=== PATIENT | female | born 1955 | race Caucasian/White ===

== ENCOUNTER 2018-02-14 08:58 | Outpatient (CLI) | payer BC ==
--- NOTE | 2018-02-14 10:45 | ULT ---
GALLBLADDER ULTRASOUND: HISTORY: Abnormal liver function tests. COMPARISON: None. TECHNIQUE: Utilizing a Multi-Hertz transducer, sonographic imaging of the right upper quadrant was performed in the longitudinal and transverse plane. FINDINGS: The left hepatic lobe is difficult to evaluate due to bowel gas. The right hepatic lobe has a normal echotexture. No hepatic masses or intrahepatic biliary dilatation. Contour of the hepatic margin i s maintained. The right hepatic lobe is reported to be 15.8 cm. The right kidney has a normal cortical echotexture. No hydronephrosis. The right kidney measures 3. 6 x 10.6 x 4.1 cm. The gallbladder is surgically absent. A previous cholecystectomy is reported in 2002. The main port al vein is patent. Appropriate reduction of flow. Common bile duct diameter is 0.4 cm. IMPRESSION: Limited evaluation of the liver. The visualized hepatic parenchyma does not demonstrate any obvious masses. Correlate clinically. If there is concern for mass, consider liver mass protocol CT. POS: [facility]
== END 2018-02-14 08:59 | disposition home or self-care (01) ==
LOC: SCSULT 08:58
PROVIDERS: ATTEND Internal Medicine Geriatric Medicine
DX: R94.5 Abnormal results of liver function studies (principal)
CPT/HCPCS: 76705

== ENCOUNTER 2018-07-13 14:44 | Emergency (ER) | payer BC ==
--- NOTE | 2018-07-13 16:28 | RAD ---
CHEST ONE VIEW 07/13/18 HISTORY: Chest pain. COMPARISON: Chest radiograph 2017. FINDINGS: There is interposition of the bowel between the hemidiaphragm and the spleen as well as the liver. Vera ngs without focal air space consolidation, pneumothorax or effusion. No acute osseous abnormality. IMPRESSION: 1. No acute intrathoracic abnormality. 2. Chronic granulomatous disease. POS: [facility]
[2018-07-13 16:43] LABS: #Lymphocytes 2.3 thou/uL (1.20-3.40); #Monocytes 0.3 thou/uL (0.11-0.59); #Neutrophils 4.4 thou/uL (1.40-6.50); %Basophils 0.6 % (0.0-1.0); %Eosinophils 0.7 % (0.0-10.0); %Lymphocytes 32.9 % (21.0-51.0); %Monocytes 4.6 % (0.0-10.0); %Neutrophils 61.2 % (42.0-75.0); Hemoglobin 12.8 g/dL (12.0-16.0); Mean Corpuscular HGB CONC 32.9 g/dL (32.0-36.0); Mean Corpuscular Hemoglobin 29.2 pg (27.0-31.0); Mean Corpuscular Volume 88.6 fL (78.0-98.0); Mean Platelet Volume 8.5 fL (7.4-10.4); Platelet Count 231 thou/uL (130-400); White Blood Cell (WBC) Count 7.1 thou/uL (4.8-10.8)
[2018-07-13 17:07] LABS: ALT (SGPT) 15 U/L (8-55); AST (SGOT) 20 U/L (5-34); Albumin 3.9 g/dL (3.4-4.8); Alkaline Phosphatase 116 U/L (40-150); Anion Gap 12 mmol/L (10-20); BUN (Urea Nitrogen) 14 mg/dL (9.8-20.1); Bilirubin, Total 0.2 mg/dL (0.2-1.2); Calc. Creatinine Clearance 0 mL/min (70-130); Carbon Dioxide 20 mmol/L (23-31); Chloride 108 mmol/L (98-107); Estimated GFR-MDRD 73; Globulin 2.8 g/dL (2.4-3.5); Glucose 92 mg/dL (80-115); Potassium 4.1 mmol/L (3.5-5.1); Protein, Total 6.7 g/dL (6.0-8.3); Sodium 136 mmol/L (136-145)
[2018-07-13 17:11] LABS: CKMB 0.9 ng/mL (0-6.6); Troponin I Less than 0.010 ng/mL (< 0.028)
--- NOTE | 2018-07-15 20:22 | EKG ---
Test Reason : DIZZINESS Blood Pressure : / mmHG Vent. Rate : 102 BPM Atrial Rate : 102 BPM P-R Int : 170 ms QRS Dur : 088 ms QT Int : 344 ms P-R-T Axes : 055 042 064 degrees QTc Int : 448 ms Sinus tachycardia Nonspecific ST and T wave abnormality Abnormal ECG Confirmed by PHYLLIS MOSELEY M.D. ([id number]), copy editor NATHALIA WEIR ([id number] on 07/15/2018 8:21:52 PM Referred By: Confirmed By:PHYLLIS MOSELEY M.D.
== END 2018-07-13 18:27 | disposition home or self-care (01) ==
LOC: ERS 14:44
DX: I47.1 Supraventricular tachycardia (principal); F41.9 Anxiety disorder, unspecified; Z79.899 Other long term (current) drug therapy
CPT/HCPCS: 36415; 71045; 80053; 82553; 84443; 84484; 85025; 93005; 96360; 96361

== ENCOUNTER 2018-12-08 09:58 | Outpatient (CLI) | payer BC ==
--- NOTE | 2018-12-15 16:24 | MMO ---
BILATERAL MAMMOGRAMS: DATE: 12/08/18 HISTORY: Screening mammography. COMPARISON: Multiple exams back to 08/14/12. FINDINGS: Heterogeneously dense fibroglandular tissue and benign-appearing calcifications. No dominant mass or suspicious calcifications. The study was evaluated with the assistance of computer-aided detection. IMPRESSION: BIRADS 1: Negative Suggest routine follow-up. POS: [facility]
== END 2018-12-08 09:59 | disposition home or self-care (01) ==
LOC: SCSMAMMO 09:58
PROVIDERS: ATTEND Internal Medicine Geriatric Medicine
DX: Z12.31 Encounter for screening mammogram for malignant neoplasm of breast (principal)
CPT/HCPCS: 77067

== ENCOUNTER 2019-11-15 11:21 | Outpatient (CLI) | payer BC ==
--- NOTE | 2019-11-15 11:56 | RAD ---
XR Pelvis AP STANDARD HISTORY: Pelvic pain. Patient has had several falls over the past few weeks. COMPARISON: None. FINDINGS: The pelvic ring is intact without evidence of fracture. SI joints are symmetric. No diastas es of the symphysis. Surgical clips seen within the pelvis. IMPRESSION: No acute findings.
--- NOTE | 2019-11-15 11:56 | RAD ---
XR Lumbar Spine 2 Or 3 View HISTORY: Back pain. Patient has had several falls. COMPARISON: None. FINDINGS: The vertebral bodies maintain normal height. Minimal osteophytic changes are seen without s ignificant disc narrowing. There are mild degenerative facet changes noted. Pedicles appear intact. IMPRESSION: Minimal arthritic changes of the spine no acute injury.
--- NOTE | 2019-11-15 11:57 | RAD ---
XR Hip Rt 2-3 View HISTORY: Right hip pain status post several falls. COMPARISON: None.. FINDINGS: The joint space is fairly well-preserved without evidence of any significant arthritic kline ge. No evidence of fracture. IMPRESSION: Negative right hip.
== END 2019-11-15 11:22 | disposition home or self-care (01) ==
LOC: SCSRAD 11:21
PROVIDERS: ATTEND Family Medicine
DX: M25.551 Pain in right hip (principal); M54.5 Low back pain; R10.2 Pelvic and perineal pain; M47.816 Spondylosis without myelopathy or radiculopathy, lumbar region
CPT/HCPCS: 72100; 72170

== ENCOUNTER 2019-12-07 08:11 | Outpatient (CLI) | payer BC ==
--- NOTE | 2019-12-07 09:49 | MRI ---
MRI LUMBAR SPINE NONCONTRAST: HISTORY: L2 radiculopathy. Chronic back pain x15 years. Previous pelvic fracture. COMPARISON: None. FINDINGS: Appropriate T1 marrow signal intensity of the lumbar vertebrae. Lumbar spine vertebral body heights a re maintained. No fracture. No significant STIR hyperintensity to suggest vertebral body edema or ligamentous injury. Appropriate signal intensity in the visualized paraspinal muscles. Appropriate signal intensity in th e visualized solid organs. Conus medullaris terminates at the T12-L1 disc space. T12-L1:Adequate disc hydration. No significant central canal stenosis or significant neural foraminal narrowing. L1-L2:Adequate disc hydration. No significant central canal stenosis or significant neural foraminal narrowing. L2-L3:Adequate disc hydration. No significant central canal stenosis or significant neural foraminal narrowing. L3-L4:Desiccation with mild loss of disc space height. Minimal ligament flavum thickening and facet h ypertrophy. No significant central canal stenosis. Bilaterally, the neural foramina are patent. L4-L5:Adequate disc hydration without significant loss of disc space height. Broad-based disc bulge, ligament flavum thickening and facet hypertrophy do not cause any significant stenosis of the thecal sac. However, there is right greater than left encroachment upon both subarticular zones secon bob to disc material and posterior element hypertrophy. Partial obscuration the traversing right L5 nerve root. Contact upon without obscuration of the traversing left L5 nerve root. Mild right neur al foraminal narrowing. Patent left neural foramen. L5-S1:Adequate disc hydration. No significant central canal stenosis. Mild ligament flavum thickening and facet hypertrophy. Small amount of fluid in both facet joints. Bilaterally, the neural foramina are patent. 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 IMPRESSION: Degenerative changes of the lumbar spine as above. Transcribed Date/Time: 12/07/2019 10:16 AM
== END 2019-12-07 08:12 | disposition home or self-care (01) ==
LOC: SCSMRI 08:11
PROVIDERS: ATTEND Family Medicine
DX: M54.17 Radiculopathy, lumbosacral region (principal); M47.816 Spondylosis without myelopathy or radiculopathy, lumbar region
CPT/HCPCS: 72148

== ENCOUNTER 2022-06-26 17:19 | Inpatient (IN) | payer MEDICARE, BC ==
[2022-06-26] MEDS ORDERED: Meclizine HCl 25 MG TAB ONE (17:47)
[2022-06-26 17:55] LABS: #Basophils 0.1 thou/uL (0.0-0.2); #Eosinphils 0.1 thou/uL (0.0-0.7); #Lymphocytes 3.4 thou/uL (1.20-3.40); #Monocytes 0.4 thou/uL (0.11-0.59); #Neutrophils 4.3 thou/uL (1.40-6.50); %Basophils 0.7 % (0.0-1.0); %Lymphocytes 40.9 % (21.0-51.0); %Monocytes 5.2 % (0.0-10.0); %Neutrophils 52.3 % (42.0-75.0); Hemoglobin 13.5 g/dL (12.0-16.0); Mean Corpuscular HGB CONC 33.7 g/dL (32.0-36.0); Mean Corpuscular Hemoglobin 31.8 pg (27.0-31.0); Mean Corpuscular Volume 94.3 fL (78.0-98.0); Mean Platelet Volume 8.8 fL (7.4-10.4); Platelet Count 204 thou/uL (130-400); RBC Distribution Width 12.6 % (11.5-14.5); Red Blood Cell (RBC) Count 4.25 mill/uL (4.20-5.40); White Blood Cell (WBC) Count 8.2 thou/uL (4.8-10.8)
[2022-06-26 18:15] LABS: ALT (SGPT) 14 U/L (8-55); AST (SGOT) 29 U/L (5-34); Albumin 4.2 g/dL (3.4-4.8); Alkaline Phosphatase 101 U/L (40-110); Anion Gap 17 mmol/L (10-20); BUN (Urea Nitrogen) 19 mg/dL (9.8-20.1); Bilirubin, Total 0.2 mg/dL (0.2-1.2); Calc. Creatinine Clearance 0 mL/min (70-130); Calcium 9.2 mg/dL (7.8-10.44); Carbon Dioxide 19 mmol/L (23-31); Chloride 105 mmol/L (98-107); Estimated GFR 74; Globulin 2.9 g/dL (2.4-3.5); Glucose 95 mg/dL (80-115); Potassium 4.9 mmol/L (3.5-5.1); Protein, Total 7.1 g/dL (5.8-8.1); Sodium 136 mmol/L (136-145)
[2022-06-26] MEDS ORDERED: Aspirin 325 MG TAB ONE (18:33)
[2022-06-26] MEDS ORDERED: Bisacodyl 5 MG TAB PO PRN (19:47)
[2022-06-26] MEDS ORDERED: Senokot S 8.6-50 MG TAB PO PRN (19:47)
[2022-06-26] MEDS ORDERED: Ondansetron PF 4 MG/2 ML Vial IVP PRN (19:47)
[2022-06-26] MEDS ORDERED: Melatonin 3 MG TAB PO PRN (19:56)
[2022-06-26] MEDS ORDERED: Pantoprazole 40 MG VIAL IVP SCH (21:00)
[2022-06-26] MEDS: Acetaminophen 325 MG TAB PO PRN (21:12)
[2022-06-26] MEDS: Sodium Chloride 0.9% 1,000 ML IV SCH (21:12)
[2022-06-26] MEDS: Atorvastatin Calcium 40 MG TAB PO SCH (21:12)
[2022-06-26 22:58] VITALS: BMI 35.5
[2022-06-27 04:22] LABS: Bacteria/HPF None Seen HPF (None Seen); Bilirubin Negative (Negative); Blood, Urine Negative (Negative); Clarity Clear (Clear); Glucose, Urine (Dipstick) Normal (Negative); Ketone, Urine Negative (Negative); Leukocyte Negative Leu/uL (Negative); Nitrite Negative (Negative); Protein, Urine (Dipstick) Negative (Neg-Trace); RBC/HPF 0-3 HPF (0-3); Specific Gravity, Urine 1.008 (1.002-1.036); Squamous Epithelial 0-3 HPF (0-3); Urobilinogen Normal mg/dL (Less than 2); WBC/HPF 0-3 HPF (0-3); pH, Urine 6.5 (5.0-9.0)
[2022-06-27 04:25] LABS: Urine Culture Reflex No No
[2022-06-27 05:30] LABS: #Eosinphils 0.1 thou/uL (0.0-0.7); #Lymphocytes 2.5 thou/uL (1.20-3.40); #Monocytes 0.4 thou/uL (0.11-0.59); #Neutrophils 2.7 thou/uL (1.40-6.50); %Basophils 0.9 % (0.0-1.0); %Eosinophils 1.3 % (0.0-10.0); %Lymphocytes 43.6 % (21.0-51.0); %Neutrophils 47.2 % (42.0-75.0); Hemoglobin 11.8 g/dL (12.0-16.0); Mean Corpuscular HGB CONC 33.2 g/dL (32.0-36.0); Mean Corpuscular Hemoglobin 31.8 pg (27.0-31.0); Mean Corpuscular Volume 95.8 fL (78.0-98.0); Mean Platelet Volume 8.6 fL (7.4-10.4); Platelet Count 182 thou/uL (130-400); RBC Distribution Width 12.5 % (11.5-14.5); Red Blood Cell (RBC) Count 3.73 mill/uL (4.20-5.40); White Blood Cell (WBC) Count 5.6 thou/uL (4.8-10.8)
[2022-06-27 05:50] LABS: Hemoglobin A1c 5.2 % (4.0-6.0)
[2022-06-27 06:10] LABS: ALT (SGPT) 10 U/L (8-55); AST (SGOT) 17 U/L (5-34); Albumin 3.5 g/dL (3.4-4.8); Alkaline Phosphatase 89 U/L (40-110); Anion Gap 12 mmol/L (10-20); BUN (Urea Nitrogen) 16 mg/dL (9.8-20.1); Bilirubin, Total 0.4 mg/dL (0.2-1.2); Calc. Creatinine Clearance 88 mL/min (70-130); Calcium 8.6 mg/dL (7.8-10.44); Carbon Dioxide 24 mmol/L (23-31); Chloride 109 mmol/L (98-107); Cholesterol 207 mg/dl (< 200 Desired); Estimated GFR 69; Globulin 2.3 g/dL (2.4-3.5); Glucose 88 mg/dL (80-115); HDL Cholesterol 69 mg/dL (>60 Neg Risk); LDL Cholesterol, Calculated 124 mg/dL; Potassium 4.1 mmol/L (3.5-5.1); Protein, Total 5.8 g/dL (5.8-8.1); Sodium 141 mmol/L (136-145); Triglycerides 68 mg/dL (Less than 150)
[2022-06-27] MEDS ORDERED: Midazolam HCl 2 mg/2 ml Vial SLOW IVP SCH (08:15)
[2022-06-27] MEDS: Polyethylene Glycol 3350 17 GM Packet PO SCH (08:36)
[2022-06-27] MEDS: Pantoprazole 40 MG VIAL IVP SCH (08:37)
[2022-06-27] MEDS: Sodium Chloride 0.9% 1,000 ML IV SCH ×3 (09:08→10:14)
[2022-06-27] MEDS ORDERED: Cholecalciferol 1,000 UNITS (25 MCG) TAB PO SCH (21:00)
[2022-06-27] MEDS: Bupropion 100 MG SR TAB PO SCH (21:11)
[2022-06-27] MEDS: Atorvastatin Calcium 40 MG TAB PO SCH (21:11)
[2022-06-27] MEDS: Topiramate 25 MG TAB PO SCH (21:11)
[2022-06-28 05:27] LABS: #Eosinphils 0.1 thou/uL (0.0-0.7); #Lymphocytes 2.4 thou/uL (1.20-3.40); #Monocytes 0.5 thou/uL (0.11-0.59); #Neutrophils 3.3 thou/uL (1.40-6.50); %Basophils 0.3 % (0.0-1.0); %Eosinophils 0.9 % (0.0-10.0); %Lymphocytes 38.1 % (21.0-51.0); %Monocytes 7.2 % (0.0-10.0); %Neutrophils 53.5 % (42.0-75.0); Hemoglobin 12.4 g/dL (12.0-16.0); Mean Corpuscular HGB CONC 32.3 g/dL (32.0-36.0); Platelet Count 192 thou/uL (130-400); RBC Distribution Width 12.6 % (11.5-14.5); Red Blood Cell (RBC) Count 3.99 mill/uL (4.20-5.40); White Blood Cell (WBC) Count 6.2 thou/uL (4.8-10.8)
[2022-06-28 05:48] LABS: Anion Gap 11 mmol/L (10-20); BUN (Urea Nitrogen) 11 mg/dL (9.8-20.1); Calc. Creatinine Clearance 89 mL/min (70-130); Calcium 8.8 mg/dL (7.8-10.44); Carbon Dioxide 24 mmol/L (23-31); Chloride 107 mmol/L (98-107); Estimated GFR 70; Glucose 90 mg/dL (80-115); Potassium 4.2 mmol/L (3.5-5.1); Sodium 138 mmol/L (136-145)
[2022-06-28 08:20] VITALS: TEMP 98
[2022-06-28] MEDS: Polyethylene Glycol 3350 17 GM Packet PO SCH (08:26)
[2022-06-28] MEDS: Bupropion 100 MG SR TAB PO SCH (08:27)
[2022-06-28] MEDS: Topiramate 25 MG TAB PO SCH (08:28)
[2022-06-28] MEDS: Pantoprazole 40 MG VIAL IVP SCH (08:29)
[2022-06-28] MEDS ORDERED: Escitalopram Oxalate 20 mg Tablet PO SCH (09:00)
[2022-06-28] MEDS ORDERED: Lisinopril 10 MG TAB PO SCH (09:00)
[2022-06-28] MEDS ORDERED: valACYclovir 500 MG TAB PO SCH (09:00)
[2022-06-28] MEDS: Acetaminophen 325 MG TAB PO PRN (11:26)
[2022-06-28 16:09] VITALS: BP 141/64
[2022-06-29] MEDS ORDERED: Aspirin 81 mg Enteric Coated Tablet PO SCH (09:00)
== END 2022-06-28 18:45 | disposition home or self-care (01) | DRG 69 ==
LOC: ERS 17:19 → NEURO 18:32 → OBSVTOIN 06-27 15:51
PROVIDERS: ADMIT Internal Medicine; ATTEND Hospitalist
DX: G45.9 Transient cerebral ischemic attack, unspecified (principal); I47.1 Supraventricular tachycardia; Z20.822 Contact with and (suspected) exposure to COVID-19; F32.A Depression, unspecified; I10 Essential (primary) hypertension; F41.9 Anxiety disorder, unspecified; E66.9 Obesity, unspecified; I16.0 Hypertensive urgency; Z90.49 Acquired absence of other specified parts of digestive tract; Z90.710 Acquired absence of both cervix and uterus; Z88.2 Allergy status to sulfonamides; Z86.79 Personal history of other diseases of the circulatory system; Z68.35 Body mass index [BMI] 35.0-35.9, adult; Z79.899 Other long term (current) drug therapy
CPT/HCPCS: 36415; 70450; 70551; 80048; 80053; 80061; 81001; 83036; 84443; 84484; 85025; 93005; 93306; 93880; 94760; C9113; J2250; J2405; J7050; U0003; U0005

== ENCOUNTER 2025-08-29 11:45 | Emergency (ER) | payer MEDICARE ==
[2025-08-29 12:26] LABS: #Basophils Less than 0.03 10x3/uL (0.0-0.2); #Eosinophils 0.04 10x3/uL (0.0-0.7); #Monocytes 0.30 10x3/uL (0.11-0.59); #Neutrophils 2.68 10x3/uL (1.40-6.50); %Basophils 0.3 % (0.0-1.0); %Eosinophils 0.7 % (0.0-10.0); %Lymphocytes 47.5 % (21.0-51.0); %Monocytes 5.2 % (0.0-10.0); %Neutrophils 46.1 % (42.0-75.0); Hematocrit 38.2 % (36.0-47.0); Hemoglobin 13.0 g/dL (12.0-16.0); Mean Corpuscular Hemoglobin 31.2 pg (27.0-31.0); Mean Corpuscular Volume 91.6 fL (78.0-98.0); Platelet Count 184 10x3/uL (130-400); Red Blood Cell (RBC) Count 4.17 mill/uL (4.20-5.40); White Blood Cell (WBC) Count 5.81 10x3/uL (4.8-10.8)
[2025-08-29 12:50] LABS: ALT (SGPT) 15 U/L (Less than 34); AST (SGOT) 24 U/L (11-34); Albumin 3.7 g/dL (3.1-4.5); Alkaline Phosphatase 73 U/L (40-110); Anion Gap 12 mmol/L (10-20); BUN (Urea Nitrogen) 15 mg/dL (9.8-20.1); Bilirubin, Total 0.4 mg/dL (0.3-1.2); Calc. Creatinine Clearance 0 mL/min (70-130); Calcium 8.7 mg/dL (7.8-10.44); Carbon Dioxide 21 mmol/L (23-31); Chloride 106 mmol/L (98-107); Globulin 2.6 g/dL (2.4-3.5); Glucose 78 mg/dL (80-115); Magnesium 2.1 mg/dL (1.6-2.6); Potassium 4.1 mmol/L (3.5-5.1); Sodium 135 mmol/L (136-145)
[2025-08-29] MEDS ORDERED: Ketorolac Tromethamine 30 MG (1 mL) VIAL ONE (14:16)
== END 2025-08-29 15:00 | disposition home or self-care (01) ==
LOC: ERS 11:45
DX: I47.10 Supraventricular tachycardia, unspecified (principal); Z79.899 Other long term (current) drug therapy
CPT/HCPCS: 71045; 71260; 74177; 80053; 83735; 84484; 85025; 93005; 94760; 96374; 99285; J1885